=== PATIENT | female | born 1945 | race Caucasian/White ===

== ENCOUNTER 2024-10-07 12:55 | Emergency (ER) | payer MEDICARE, OTHER, SELFPAY ==
[2024-10-07] VITALS (15 sets, daily range): BP systolic 153–176; BP diastolic 50–79; BMI 29.8
[2024-10-07 14:08] LABS: ALT (SGPT) 20 U/L (0-35); AST (SGOT) 25 U/L (14-36); Albumin 4.4 g/dl (3.5-5.0); Alkaline Phosphatase 125 U/L (38-126); Blood Urea Nitrogen 13 mg/dl (7-17); Calcium 8.9 mg/dl (8.4-10.2); Carbon Dioxide 23 mmol/L (22-30); Chloride 104 mmol/L (98-107); Glucose 103 mg/dl (70-99); Potassium 4.7 mmol/L (3.5-5.1); Sodium 138 mmol/L (135-145); Total Bilirubin 0.8 mg/dl (0.2-1.3); Total Protein 6.9 g/dl (6.3-8.2); eGFR > 60.00
[2024-10-07 14:17] LABS: Hematocrit 24.1 % (37.0-47.0); Hemoglobin 6.6 g/dL (12.0-16.0); Mean Corp Hgb Conc. 27.4 g/dL (33.0-37.0); Mean Corpuscular Hgb 19.3 pg (27.0-31.0); Mean Corpuscular Volume 70.5 fL (81.0-99.0); Mean Platelet Volume 10.8 fL (7.4-10.4); Platelet Count 486 10^3/uL (130-400); Red Blood Cell Count 3.42 10^6/uL (4.20-5.40); Red Cell Dist. Width 17.8 % (11.5-14.5); White Blood Cell Count 32.6 10^3/uL (4.8-10.8)
[2024-10-07 15:34] LABS: % Basophils 0.5 % (0-2); % Eosinophils 1.1 % (0-6); % Immature Granulocytes 4.8 % (0-0.5); % Lymphocytes 3.6 % (20.5-51.1); % Monocytes 3.1 % (1.7-9.3); % Neutrophils 86.9 % (42.2-75.2); Absolute Basophils 0.2 10^3/uL (0-0.2); Absolute Eosinophils 0.4 10^3/uL (0-0.7); Absolute Immature Granulocytes 1.6 10^3/uL (0-0.05); Absolute Lymphocytes 1.2 10^3/uL (1.2-3.4); Absolute Neutrophils 28.4 10^3/uL (1.4-6.5); Anisocytosis 2+; Hypochromasia 1+; Macrocytosis 2+; Normal RBC Morphology No; Nucleated Red Blood Cells % 0.2 %
[2024-10-07 15:35] LABS: Ovalocytes 1+; Stomatocytes 1+; Tear Drop Red Blood Cells 2+
--- NOTE | 2024-10-07 16:16 | ED.GENMED ---
History of Present Illness
General
Chief Complaint: Breathing Problem
Source: patient
Exam Limitations: none
Time Seen by Provider: 10/07/24 14:45
Nursing documentation reviewed up to this point in time: agreed with
History of Present Illness
History of Present Illness:
Patient with history of paroxysmal atrial fibrillation on Xarelto and anemia, requiring blood transfusion in 2022, presents to ED secondary to worsening anemia over the past 2 months, with worsening shortness of breath with exertion. Patient states
that she has noted some blood when wiping after bowel movements, thought to be secondary to hemorrhoids. However, she is unsure if there is further bleeding with her stool. Patient is scheduled to see make an appointment to see GI physician as an
outpatient. Denies dizziness. Denies chest pain. Denies chest palpitations. Denies nausea or vomiting. Denies recent change in medications or diet.
Review of Systems
Review of Systems
Allergies reviewed?: Yes
All Other Systems: ROS reviewed and negative except as documented in HPI and ROS
Constitutional: Reports no symptoms
Respiratory: Reports trouble breathing; Denies cough
Cardiac: Reports no symptoms
ABD/GI: Reports bloody stools
Musculoskeletal: Reports no symptoms
Skin: Reports no symptoms
Neurological: Reports no symptoms
Phy Exam
Physical Exam
Physical Exam:
Physical Exam
General: mild distress, not acutely ill. afebrile
Head: nc/at. eomi
Neck: supple. no meningeal signs.
Heart: s1/s2 regular rate and rhythm, no murmur. equal radial pulses.
Lungs: no acute respiratory distress. clear bilaterally
Abdomen: normal bowel sounds. not tender.
Neuro: alert and oriented x 3. no focal neurological deficits
Skin: no rash
Psychiatric: well kept. interactive and cooperative
Extremities: no edema. no calf tenderness.
Scores
Heart Failure Risk
Heart Failure Risk Score: Not Applicable
Course
Orders/Labs/Results
Orders:
Orders
10/07/24 13:36
EKG [Electrocardiogram (*1)] Urgent
Reason for Study: Shortness of Breath
10/07/24 13:37
EKG- Treatment ONCE
10/07/24 13:46
Type And Crossmatch [Type+Screen] Urgent
Complete Blood Count/With Diff Urgent
Comprehensive Metabolic Panel Urgent
Ferritin Urgent
Comment: ADD ON
Iron Urgent
Comment: ADD ON
Total Iron Binding Urgent
Comment: ADD ON
10/07/24 14:56
ABO2 Urgent
BBK Wristband Number:
Associate notified that ABO2 has been ordered: [id number]
Date: 10/07/24
Time: 13:56
Rim Technician ID: [id number]
10/07/24 15:06
* Blood Bank Products Urgent
Blood Bank Products: *Packed RBC Leuko(PRBC's)
Quantity: 2
Transfuse Today: Yes
Reason: Anemia
IV Insert/Care/Rem.- Treatment PRN
10/07/24 19:09
Add On- LAB Urgent
Tests Added?: iron, ferritin, tibc
Abnormal Lab Results
10/07/24
13:46
WBC 32.6 H 10^3/uL
(4.8-10.8)
RBC 3.42 L 10^6/uL
(4.20-5.40)
Hgb 6.6 L* g/dL
(12.0-16.0)
Hct 24.1 L %
(37.0-47.0)
MCV 70.5 L fL
(81.0-99.0)
MCH 19.3 L pg
(27.0-31.0)
MCHC 27.4 L g/dL
(33.0-37.0)
RDW 17.8 H %
(11.5-14.5)
Plt Count 486 H 10^3/uL
(130-400)
MPV 10.8 H fL
(7.4-10.4)
Abs Immat Gran (auto) 1.6 H 10^3/uL
(0-0.05)
Absolute Neuts (auto) 28.4 H 10^3/uL
(1.4-6.5)
Absolute Monos (auto) 1.0 H 10^3/uL
(0.1-0.6)
Immature Gran % 4.8 H %
(0-0.5)
Neutrophils % 86.9 H %
(42.2-75.2)
Lymphocytes % 3.6 L %
(20.5-51.1)
Glucose 103 H mg/dl
(70-99)
Iron 30 L ug/dl
(37-170)
% Saturation 6 L %
(20-50)
Crossmatch IS Only See Detail
10/07/24 13:46
10/07/24 13:46
Vital Signs
Initial and Last Documented VS:
Initial Vital Signs
Temp Pulse Resp BP Pulse Ox
98.6 F 68 16 157/71 100
10/07/24 13:32 10/07/24 13:32 10/07/24 13:32 10/07/24 13:32 10/07/24 13:32
Last Documented Vital Signs
Temp Pulse Resp BP Pulse Ox
98.2 F 69 18 169/63 95
10/07/24 23:00 10/07/24 23:00 10/07/24 23:00 10/07/24 23:00 10/07/24 22:45
MDM/Problems Addressed
MDM/Problems Addressed:
Pt refused rectal exam. Pt would like to receive blood transfusion and be discharged home for outpatient evaluation.
H/H noted. Blood transfusion consent on the chart.
*Critical Care Note
Total Time (30-74mins, 75-104mins- exclusive of procedures): Not Applicable
ED Attending Note
-
Portions of this chart may have been created with voice recognition software.� Occasional wrong word or��sound alike� substitutions may have occurred due to the inherent limitations of voice recognition software.
Discharge Plan
Departure
Patient Disposition: Home (Routine Discharge)
Patient with high blood pressure during this ER visit?: Yes
Discharge Problem:
Anemia
Instructions: Anemia in adults, possibly from low iron - ED discharge instructions
Prescriptions:
No Action
losartan 50 MG tablet
100 mg PO HS
Metamucil Fiber Singles 1 PACKET powder in packet
1 packet PO DAILY
Xarelto 20 MG tablet
20 mg PO QPM
metoprolol succinate 25 mg Tablet Extended Release 24 Hr
25 mg PO 1900
Advil PM 200-38 mg Tablet
2 cap PO HS PRN (Reason: pain)
amlodipine 5 mg Tablet
5 mg PO DAILY
omeprazole 40 mg Capsule,Delayed Release(Dr/Ec)
40 mg PO DAILY
levothyroxine [Synthroid] 50 mcg Tablet
50 mcg PO DAILY
metoprolol succinate 50 mg Tablet Extended Release 24 Hr
50 mg PO DAILY
furosemide [Lasix] 20 mg tablet
20 mg PO DAILY Qty: 90 3RF
Referrals:
Alex Pena DO [Active] -
Katlin Mata CRNP [Family Provider] -
Activity Restrictions/Additional Instructions:
As discussed, please follow-up with your sales support specialist and/or referred GI physician for further evaluation and treatment.
Interventions
Interventions:
*Risk Screen - Suicide Last Done: 10/07/24 13:32
*General Assessment Last Done: 10/07/24 14:53
*Neglect/Abuse Screening Last Done: 10/07/24 14:55
ED- Fall Risk Assessment Last Done: 10/07/24 23:16
*ED COVID-19 Vaccine History Last Done: 10/07/24 14:53
*Nursing Disposition Last Done: 10/07/24 23:16
ED- Cardiac Assessment Last Done: 10/07/24 19:49
ED- Pulmonary Assessment Last Done: 10/07/24 19:49
Discharge Date and Time
Discharge Date/Time: 10/07/24 23:17
Print Language: EQUATORIAL GUINEAN
[2024-10-07 19:43] LABS: Iron 30 ug/dl (37-170)
[2024-10-07 19:53] LABS: Percent Saturation 6 % (20-50); Total Iron Binding Capacity 449 ug/dl (265-497)
[2024-10-07 20:29] LABS: Ferritin 12.6 ng/ml (11.1-264.0)
== END 2024-10-07 23:17 | disposition home or self-care (01) ==
LOC: EMR 12:55
PROVIDERS: Emergency Medicine; EMERGENCY PHYSICIAN Emergency Medicine; FAMILY PHYSICIAN Nurse Practitioner
DX: D64.9 Anemia, unspecified (principal); I48.0 Paroxysmal atrial fibrillation; Z79.01 Long term (current) use of anticoagulants
CPT/HCPCS: 99283; 36430; 80053; 82728; 83540; 83550; 85025; 86850; 86900; 86901; 86920; 93005; P9016

== ENCOUNTER → 2024-10-13 07:58 | Outpatient (REF) | payer MEDICARE, OTHER, SELFPAY | LOC: RCS 07:58 | PROVIDERS: ATTENDING PHYSICIAN Internal Medicine Cardiovascular Disease; FAMILY PHYSICIAN Nurse Practitioner | DX: I48.0 Paroxysmal atrial fibrillation (principal); I27.20 Pulmonary hypertension, unspecified | CPT/HCPCS: 93306 ==

== ENCOUNTER 2024-11-05 10:29 | Outpatient (RCR) | payer MEDICARE, OTHER, SELFPAY ==
[2024-10-28 11:31] VITALS: BP 152/62
[2024-10-28] MEDS: INJECTAFER 265 MG IV (11:50)
[2024-10-28 11:53] LABS: % Basophils 0.9 % (0-2); % Eosinophils 1.7 % (0-6); % Immature Granulocytes 1.2 % (0-0.5); % Lymphocytes 3.8 % (20.5-51.1); % Neutrophils 90.4 % (42.2-75.2); Absolute Basophils 0.3 10^3/uL (0-0.2); Absolute Eosinophils 0.6 10^3/uL (0-0.7); Absolute Immature Granulocytes 0.4 10^3/uL (0-0.05); Absolute Lymphocytes 1.3 10^3/uL (1.2-3.4); Absolute Monocytes 0.7 10^3/uL (0.1-0.6); Absolute Neutrophils 29.8 10^3/uL (1.4-6.5); Hematocrit 33.1 % (37.0-47.0); Hemoglobin 9.5 g/dL (12.0-16.0); Mean Corp Hgb Conc. 28.7 g/dL (33.0-37.0); Mean Corpuscular Hgb 20.7 pg (27.0-31.0); Mean Platelet Volume 10.6 fL (7.4-10.4); Platelet Count 760 10^3/uL (130-400); Red Cell Dist. Width 21.5 % (11.5-14.5); White Blood Cell Count 32.9 10^3/uL (4.8-10.8)
[2024-10-28 13:00] VITALS: BP 145/63
[2024-10-28 15:11] LABS: Vitamin D, 25-OH*** 19.9 ng/mL (30-80)
[2024-11-05] MEDS: INJECTAFER 265 MG IV (10:57)
[2024-11-05 11:00] VITALS: BP 166/62
[2024-11-05 12:00] VITALS: BP 150/61
== END 2024-11-06 08:54 | disposition home or self-care (01) ==
LOC: OID 10:29
PROVIDERS: ATTENDING PHYSICIAN Internal Medicine Hematology & Oncology; FAMILY PHYSICIAN Nurse Practitioner
DX: D45 Polycythemia vera (principal); C94.40 Acute panmyelosis with myelofibrosis not having achieved remission; D50.8 Other iron deficiency anemias; K90.89 Other intestinal malabsorption; D73.1 Hypersplenism; T45.4X5A Adverse effect of iron and its compounds, initial encounter; Y93.89 Activity, other specified
CPT/HCPCS: 82306; 85025; 96365; J1439

== ENCOUNTER 2025-03-03 08:52 | Outpatient (RCR) | payer MEDICARE, OTHER, SELFPAY ==
[2025-03-03 09:15] VITALS: BP 175/70
[2025-03-03 10:00] VITALS: BP 164/72
[2025-03-03 10:05] VITALS: BP 171/85
== END 2025-03-09 23:59 | disposition home or self-care (01) ==
LOC: OID 08:52
PROVIDERS: ATTENDING PHYSICIAN Internal Medicine Hematology & Oncology; FAMILY PHYSICIAN Nurse Practitioner
DX: D45 Polycythemia vera (principal); C94.40 Acute panmyelosis with myelofibrosis not having achieved remission; I48.0 Paroxysmal atrial fibrillation
CPT/HCPCS: 99195

== ENCOUNTER → 2025-07-14 08:40 | Outpatient (REF) | payer MEDICARE, OTHER, SELFPAY | LOC: RCS 08:40 | PROVIDERS: ATTENDING PHYSICIAN Nurse Practitioner | DX: R00.1 Bradycardia, unspecified (principal) | CPT/HCPCS: 93225; 93226 ==